=== PATIENT | female | born 1960 | race Caucasian/White ===

== ENCOUNTER → 2019-03-26 | Outpatient (CLI) | payer OTHER ==
--- NOTE | 2019-03-26 08:02 | RAD ---
EXAM: CAROTID DOPPLER SONOGRAM. HISTORY: Hypertension. TECHNIQUE: Danielle scale and color Doppler sonographic evaluation of the neck with spectral waveform analysis was performed and static images are submitted for review. FINDINGS: RIGHT: The peak systolic velocity within the common carotid artery is 74 cm/sec. The peak systolic velocity within the internal carotid artery is 94 cm/sec and the end diastolic velocity within the internal carotid artery is 43 cm/sec. The ICA/CCA ratio is 1.18. Grayscale images demonstrate no grayscale stenosis. LEFT: The peak systolic velocity within the common carotid artery is 71 cm/sec. The peak systolic velocity within the internal carotid artery is 91 cm/sec and the end diastolic velocity within the internal carotid artery is 33 cm/sec. The ICA/CCA ratio is 1.3. Grayscale images demonstrate no grayscale stenosis. There is antegrade flow within both vertebral arteries. IMPRESSION: 1. No evidence of hemodynamically significant stenosis. PQRS Compliance Statement - Stenosis calculations for CT, MR and conventional angiography are based upon measurement of the distal ICA diameter in accordance with the NASCET methodology. Stenosis calculations for carotid ultrasound studies are derived from validated velocity criteria which are known to correlate with the NASCET methodology. Electronically signed by: Libra Gama MD (03/26/2019 7:59 AM) [facility]
== END | disposition home or self-care (01) ==
LOC: US 07:09
PROVIDERS: ATTEND Family Medicine
DX: I10 Essential (primary) hypertension (principal)
CPT/HCPCS: 93880

== ENCOUNTER → 2020-01-31 | Outpatient (CLI) | payer OTHER ==
--- NOTE | 2020-02-01 17:48 | KCIC ---
Bilateral digital screening mammograms with 3-D tomosynthesis: Reason for examination: Routine screening. Comparison is made to previous studies dated 02/04/2012 and 11/23/2010. Bilateral mammograms in CC and oblique projections were obtained with 2-D imaging and 3-D tomosynthesis imaging on a Siemens Inspiration unit and reviewed on the workstation. Interpretation was made with the benefit of CAD. The skin and nipples show no abnormalities. No abnormal axillary lymph nodes are seen. The breast parenchyma shows scattered fatty and fibroglandular density. (Breast density: Category B.) There has been some parenchymal involution previous exams. There is some patchy asymmetry in the upper-outer quadrants bilaterally. There is also a small circumscribed nodule at the 10:00 B position of the right breast measuring approximately 7 mm in size 7 cm from the nipple. This appears to been present previously. There are also additional small nodular parenchymal densities bilaterally. There are no other dominant masses, suspicious calcifications or architectural distortion. Benign calcifications are present. Impression: No evidence of malignancy. Recommend routine screening. BI-RAD Category 2: Benign. "Our facility is accredited by the [employer] Mammography Program." This patient's information has been entered into a reminder system for the patient to be notified with the results of her examination and a target date for the next mammogram. Electronically signed by: Shefali Steinberg MD (02/01/2020 5:45 PM) [id number]
== END ==
LOC: KCIC MAMMO 14:50
PROVIDERS: ATTEND Physician Assistant
DX: Z12.31 Encounter for screening mammogram for malignant neoplasm of breast (principal); N64.89 Other specified disorders of breast
CPT/HCPCS: 77063; 77067